=== PATIENT | male | born 1955 | race Caucasian/White ===

== ENCOUNTER 2018-09-21 14:24 | Outpatient (CLI) | payer BC ==
--- NOTE | 2018-09-21 15:18 | ULT ---
THYROID ULTRASOUND INDICATION: Thyroid goiter TECHNIQUE: Grayscale and color Doppler images were obtained of the thyroid gland. COMPARISON: Prior thyroid ultrasound from [facility] dated March 12, 2016 FINDINGS: Right thyroid lobe: The right thyroid lobe measures 4.7 x 2.1 x 1.8 cm. There is a new hyperechoic so lid nodule within the inferior pole of the right thyroid lobe measuring 1.4 x 1.2 x 0.8 cm. There are mixed solid and cystic nodules within the right thyroid gland. The largest is seen within the mid right thyroid lobe measuring 1.5 cm. The 2 additional measure 9 mm within the superior pole and 1 cm within the mid to lower pole of the right thyroid gland. Thyroid isthmus: The thyroid isthmus measures 0.44 cm. Left thyroid lobe: The left thyroid lobe measures 6.6 x 4.7 x 4.7 cm. The complex mixed solid and cys tic nodule within the mid to inferior pole left thyroid gland is relatively stable in size measuring 4.3 x 4.0 x 5.5 cm. There are punctate microcalcifications seen within the solid portions o f this lesion. IMPRESSION: 1. Stable TIRADS 4 lesion of the left thyroid lobe. If not already performed, ultrasound-guided FNA i s recommended for sampling. 2. TIRADS 3 lesions of the right thyroid lobe have intervally developed since the comparison examinat ion in 2015. Follow-up examination in one year is recommended to document stability.
== END 2018-09-21 14:25 | disposition home or self-care (01) ==
LOC: BICULT 14:24
PROVIDERS: ATTEND Family Medicine
DX: E04.9 Nontoxic goiter, unspecified (principal); E07.89 Other specified disorders of thyroid
CPT/HCPCS: 76536